=== PATIENT | female | born 1980 | race African-American/Black ===

== ENCOUNTER 2017-03-17 16:44 | Emergency (ER) | payer SELFPAY ==
--- NOTE | 2017-03-17 17:20 | ER Document Report ---
ED Medical Screen (RME) - General Stated Complaint: URINARY PROBLEMS Notes: 36-year-old female patient with lower abdomen pelvic pain and urinary frequency and urgency over the weekend, took Azo-Standard for 3 days, now the discomfort is a little worse and going into the back. I have greeted and performed a rapid initial assessment of this patient. A comprehensive ED assessment and evaluation of the patient, analysis of test results and completion of the medical decision making process will be conducted by additional ED providers. TRAVEL OUTSIDE OF THE [place] IN LAST 30 DAYS: No - Related Data Allergies/Adverse Reactions: metoclopramide HCl [From Reglan] Allergy (Severe, Verified 03/17/17 17:13) Past Medical History - Social History Family history: Hypertension - Past Medical History Cardiac Medical History: Reports: Hx Hypertension Endocrine Medical History: Denies: Hx Diabetes Mellitus Type 1, Hx Diabetes Mellitus Type 2 Renal/ Medical History: Denies: Hx Peritoneal Dialysis Past Surgical History: Reports: Hx Section - x2 - Immunizations Hx Diphtheria, Pertussis, Tetanus Vaccination: Yes
[2017-03-17 18:06] LABS: APPEARANCE,URINE CLEAR; BILIRUBIN,URINE NEGATIVE (NEGATIVE); GLUCOSE, URINE NEGATIVE (NEGATIVE); KETONES,URINE NEGATIVE (NEGATIVE); LEUKOCYTE ESTERASE,URINE NEGATIVE (NEGATIVE); NITRITE,URINE POSITIVE (NEGATIVE); PROTEIN,URINE NEGATIVE (NEGATIVE); URINE SPECIFIC GRAVITY 1.021
[2017-03-17] MEDS ORDERED: SULFAMETHOXAZOLE/TRIMETHOPRIM 800-160 MG TABLET PO ONE (19:17)
[2017-03-17] MEDS ORDERED: PHENAZOPYRIDINE HCL 200 MG TABLET PO ONE (19:17)
--- NOTE | 2017-03-17 19:19 | ER Document Report ---
HPI - HPI Patient complains to provider of: urinary symptoms Onset: Other - 3 days Onset/Duration: Persistent Quality of pain: Burning Pain Level: 4 Context: Patient complains of urinary frequency with dysuria for the past 3 days. Patient does complain of lower pelvic pain. Patient reports low-grade fever at 99 at home today. Patient does complain of some lower back pain. Patient denies any nausea or vomiting. Patient states she was treating her symptoms with AZO [id number] and finished a three-day course and still had symptoms which prompted her visit today. Associated Symptoms: Other - Urinary frequency, dysuria Exacerbated by: Denies Relieved by: Denies Similar symptoms previously: Yes Recently seen / treated by doctor: No - ROS ROS below otherwise negative: Yes Systems Reviewed and Negative: Yes All other systems reviewed and negative - CONSTITUTIONAL Constitutional: REPORTS: Fever - Low-grade 99 at home - GASTROINTESTINAL Gastrointestinal: REPORTS: Abdominal Pain. DENIES: Nausea, Patient vomiting - URINARY Urinary: REPORTS: Dysuria, Urgency, Frequency - REPRODUCTIVE Reproductive: DENIES: :, Abnormal bleeding / discharge - MUSCULOSKELETAL Musculoskeletal: REPORTS: Back Pain. DENIES: Extremity pain - DERM Skin Color: Normal Skin Problems: None Past Medical History - General Information source: Patient Last Menstrual Period: 03/08/2017 - Social History Smoking Status: Never Smoker Frequency of alcohol use: None Drug Abuse: None Occupation: daycare provider Family History: Reviewed & Not Pertinent Patient has suicidal ideation: No Patient has homicidal ideation: No - Past Medical History Cardiac Medical History: Reports: Hx Hypertension Endocrine Medical History: Denies: Hx Diabetes Mellitus Type 1, Hx Diabetes Mellitus Type 2 Renal/ Medical History: Denies: Hx Peritoneal Dialysis Past Surgical History: Reports: Hx Section - x2 - Immunizations Hx Diphtheria, Pertussis, Tetanus Vaccination: Yes Vertical Provider Document - CONSTITUTIONAL Agree With Documented VS: Yes Exam Limitations: No Limitations General Appearance: WD/WN, No Apparent Distress - INFECTION CONTROL TRAVEL OUTSIDE OF THE [place] IN LAST 30 DAYS: No - HEENT HEENT: Atraumatic, Normocephalic - NECK Neck: Normal Inspection, Supple - RESPIRATORY Respiratory: Breath Sounds Normal, No Respiratory Distress - CARDIOVASCULAR Cardiovascular: Regular Rate, Regular Rhythm, No Murmur - GI/ABDOMEN Gastrointestinal: Abdomen Soft, Abdomen Tender - Suprapubic tenderness, Abdominal Rebound, No Organomegaly - BACK Back: Normal Inspection. negative: CVA Tenderness-Right, CVA Tenderness-Left - MUSCULOSKELETAL/EXTREMETIES Musculoskeletal/Extremeties: REBECCA HERNANDEZ - NEURO Level of Consciousness: Awake, Alert, Appropriate Motor/Sensory: No Motor Deficit, No Sensory Deficit - DERM Integumentary: Warm, Dry, No Rash Course - Re-evaluation Re-evalutation: 03/17/17 19:23 Patient denies any concerns about possible sexually-transmitted infection this time. - Laboratory Laboratory results interpreted by me: 03/17/17 17:25 Urine Nitrite POSITIVE H Urine Urobilinogen 4.0 H Urine Ascorbic Acid 20 H 03/17/17 19:23 Labs- Entire Visit 03/17/17 17:25 Urine Color FERNANDA Urine Appearance CLEAR Urine pH 5.0 Ur Specific [place] 1.021 Urine Protein NEGATIVE Urine Glucose (UA) NEGATIVE Urine Ketones NEGATIVE Urine Blood NEGATIVE Urine Nitrite POSITIVE H Urine Bilirubin NEGATIVE Urine Urobilinogen 4.0 H Ur Leukocyte Esterase NEGATIVE Urine WBC (Auto) 6 Urine RBC (Auto) 2 Squamous Epi Cells Auto 1 Urine Mucus (Auto) RARE Urine Ascorbic Acid 20 H Urine HCG, Qual NEGATIVE Discharge - Discharge Clinical Impression: UTI (urinary tract infection) Qualifiers: Urinary tract infection type: acute cystitis Hematuria presence: without hematuria Qualified Code(s): N30.00 - Acute cystitis without hematuria Condition: Stable Disposition: HOME, SELF-CARE Instructions: Urinary Tract Infection ([facility]), Trimethoprim-Sulfa ([facility]), Urinary Anesthetic Agent ([facility]) Additional Instructions: Return immediately for any new or worsening symptoms Followup with your primary care provider, call tomorrow to make a followup appointment Prescriptions: Phenazopyridine HCl [Pyridium 200 mg Tablet] 200 mg PO TID #15 tablet Sulfamethoxazole/Trimethoprim [Bactrim Ds Tablet] 1 each PO BID #14 tablet Referrals: [facility] [Provider Group] - Follow up as needed
[2017-03-17 19:48] VITALS: BP 132/88
== END 2017-03-17 19:40 | disposition home or self-care (01) ==
LOC: ER 16:44
DX: N30.00 Acute cystitis without hematuria (principal); I10 Essential (primary) hypertension
CPT/HCPCS: 99284; 87086; 81025; 81001; J3490

== ENCOUNTER 2018-03-24 21:59 | Emergency (ER) | payer SELFPAY ==
[2018-03-25] MEDS ORDERED: LIDOCAINE 1% INJ-PF (10 MG/ML) 30 ML SDV INJ ONE (00:02)
--- NOTE | 2018-03-25 01:10 | ER Document Report ---
ED Wound - General Chief Complaint: Laceration Stated Complaint: FOREHEAD LACERATION Time Seen by Provider: 03/24/18 23:56 Notes: Patient presents with 3 cm laceration to her forehead and on the right side. Patient states that she slipped and hit her head on her bathtub. Patient denies any loss of consciousness and denies any dizziness. Patient states that she recently had her feet waxed and that her feet were slick which is what caused her slip and fall. Patient denies any other symptoms. TRAVEL OUTSIDE OF THE [place] IN LAST 30 DAYS: No - Related Data Allergies/Adverse Reactions: metoclopramide HCl [From [employer]] Allergy (Severe, Verified 03/17/17 17:13) Past Medical History - General Information source: Patient - Social History Smoking Status: Never Smoker Chew tobacco use (# tins/day): No Frequency of alcohol use: Occasional Drug Abuse: None Family History: Reviewed & Not Pertinent Patient has suicidal ideation: No Patient has homicidal ideation: No - Past Medical History Cardiac Medical History: Reports: Hx Hypertension Endocrine Medical History: Denies: Hx Diabetes Mellitus Type 1, Hx Diabetes Mellitus Type 2 Renal/ Medical History: Denies: Hx Peritoneal Dialysis Past Surgical History: Reports: Hx Section - x2 - Immunizations Hx Diphtheria, Pertussis, Tetanus Vaccination: Yes Review of Systems - Review of Systems Constitutional: No symptoms reported EENT: No symptoms reported Cardiovascular: No symptoms reported Respiratory: No symptoms reported Gastrointestinal: No symptoms reported Genitourinary: No symptoms reported Female Genitourinary: No symptoms reported Musculoskeletal: No symptoms reported Skin: See HPI Hematologic/Lymphatic: No symptoms reported Neurological/Psychological: No symptoms reported Physical Exam - Vital signs Vitals: Temp Pulse Resp BP Pulse Ox 98.0 F 82 20 137/95 H 100 03/24/18 22:16 03/24/18 22:16 03/24/18 22:16 03/24/18 22:16 03/24/18 22:16 - Notes Notes: PHYSICAL EXAMINATION: GENERAL: Well-appearing, well-nourished and in no acute distress. HEAD: Atraumatic, normocephalic. EYES: Pupils equal round and reactive to light, extraocular movements intact, conjunctiva are normal. ENT: Nares patent, oropharynx clear without exudates. Moist mucous membranes. NECK: Normal range of motion, supple without lymphadenopathy LUNGS: Breath sounds clear to auscultation bilaterally and equal. No wheezes rales or rhonchi. HEART: Regular rate and rhythm without murmurs ABDOMEN: Soft, nontender, nondistended abdomen. Female : deferred Musculoskeletal: Normal range of motion, no pitting or edema. No cyanosis. NEUROLOGICAL: Cranial nerves grossly intact. Normal speech, normal gait. Normal sensory, motor exams PSYCH: Normal mood, normal affect. SKIN: W3cm well approximated laceration to right forehead near hair line. Course - Re-evaluation Re-evalutation: Laceration repaired using sterile technique. Patient tolerated well. Patient reports that she had her last tetanus shot less than 5 years ago. Patient instructed to have sutures removed in 10 days to return sooner if she develops any signs of infection as outlined on her discharge papers. - Vital Signs Vital signs: Temp Pulse Resp BP Pulse Ox 99.0 F 81 16 129/91 H 100 03/25/18 01:37 03/25/18 01:37 03/25/18 01:37 03/25/18 01:37 03/25/18 01:37 Procedures - Laceration/Wound Repair Right Head Wound length (cm): 3 Wound's Depth, Shape: Into muscle Laceration pre-procedure: Sterile PPE donned Anesthetic type: 1% Lidocaine Volume Anesthetic (mLs): 4 Wound explored: Clean Irrigated w/ Saline (mLs): 30 Wound Repaired With: Sutures Suture Size/Type: 6:0 Number of Sutures: 7 Layer Closure?: No Post-procedure wound care: Sterile dressing applied Post-procedure NV exam normal: Yes Discharge - Discharge Clinical Impression: Laceration of forehead without complication Qualifiers: Encounter type: initial encounter Qualified Code(s): S01.81XA - Laceration without foreign body of other part of head, initial encounter Condition: Stable Disposition: HOME, SELF-CARE Instructions: Antibiotic Ointment Protection ([facility]), Laceration Care ([facility]), Soap Cleansing ([facility]) Additional Instructions: Laceration Care Your laceration has been sutured to keep the skin edges aligned during healing. The time of suture removal depends on the nature and location of your cut. Please follow the care instructions the doctor has outlined for you and return for further care, according to the schedule you've been given. TEN DAYS. Keep the wound and dressing clean. Unless you were told otherwise, you may shower daily, blotting the wound dry with a clean, unused towel. At other times , If the dressing gets wet or blood soaked, remove it and blot the wound dry, then reapply a new dressing. Unless you were instructed otherwise, dressings should be changed at least daily. If any signs of infection occur (swelling, redness, increasing tenderness, red streaks, tender lumps in the armpit or groin above the laceration, or fever) , see the doctor immediately. Please return to the emergency department or your primary care physician for suture removal in 10 days. Please return sooner if you develop any of the signs of infection as outlined above.
[2018-03-25 01:38] VITALS: BP 129/91
--- NOTE | 2018-03-25 08:41 | RADIOLOGY REPORT (SQ) ---
EXAM DESCRIPTION: SHOULDER RIGHT 2 OR MORE VIEWS COMPLETED DATE/TIME: 03/25/2018 12:19 am REASON FOR STUDY: pain s/p fall COMPARISON: None. NUMBER OF VIEWS: Three views. TECHNIQUE: Internal rotation, external rotation, and Y view images acquired of the right shoulder. LIMITATIONS: None. FINDINGS: MINERALIZATION: Normal. BONES: No acute fracture or dislocation. No worrisome bone lesions. JOINTS: No dislocation. VISUALIZED LUNGS AND RIBS: No pneumothorax. No rib fracture. SOFT TISSUES: No radiopaque foreign body. OTHER: No other significant finding. IMPRESSION: NO RADIOGRAPHIC EVIDENCE OF ACUTE INJURY. TECHNICAL DOCUMENTATION: JOB ID: [id number] [employer]- All Rights Reserved Reading location - IP/workstation name: [email or web address]
== END 2018-03-25 01:37 | disposition home or self-care (01) ==
LOC: ER 21:59
DX: S09.12XA Laceration of muscle and tendon of head, initial encounter (principal); S01.81XA Laceration without foreign body of other part of head, initial encounter; W01.198A Fall on same level from slipping, tripping and stumbling with subsequent striking against other object, initial encounter; I10 Essential (primary) hypertension; Z88.8 Allergy status to other drugs, medicaments and biological substances
CPT/HCPCS: 99283

== ENCOUNTER 2018-04-06 19:04 | Emergency (ER) | payer SELFPAY ==
[2018-04-06 19:15] VITALS: BP 140/86
[2018-04-06] MEDS ORDERED: LIDOCAINE 5% (700 MG) TRANSDERMAL ADH..PATCH TP ONE (19:35)
--- NOTE | 2018-04-06 19:36 | ER Document Report ---
HPI - HPI Patient complains to provider of: Suture removal, shoulder pain Onset: Other - 03/24/2018 Onset/Duration: Persistent Quality of pain: Achy Pain Level: 3 Context: She presents requesting suture removal to forehead laceration. Patient also complains of continued right upper arm pain. Patient states that she slipped and fell in the shower. Patient denies any loss of consciousness. Patient denies any problems with sutured laceration. Associated Symptoms: Other - Right upper arm pain. denies: Fever, Headache Exacerbated by: Movement Relieved by: Remaining still Similar symptoms previously: No Recently seen / treated by doctor: Yes - ROS ROS below otherwise negative: Yes Systems Reviewed and Negative: Yes All other systems reviewed and negative - CONSTITUTIONAL Constitutional: DENIES: Fever, Chills - NEURO Neurology: DENIES: Headache - CARDIOVASCULAR Cardiovascular: DENIES: Chest pain - RESPIRATORY Respiratory: DENIES: Trouble Breathing, Coughing - REPRODUCTIVE Reproductive: DENIES: : - MUSCULOSKELETAL Musculoskeletal: REPORTS: Extremity pain - DERM Skin Color: Normal Skin Problems: Laceration Past Medical History - General Information source: Patient - Social History Smoking Status: Never Smoker Chew tobacco use (# tins/day): No Frequency of alcohol use: None Drug Abuse: None Occupation: Childcare Family History: Reviewed & Not Pertinent Patient has suicidal ideation: No Patient has homicidal ideation: No - Past Medical History Cardiac Medical History: Reports: Hx Hypertension Endocrine Medical History: Denies: Hx Diabetes Mellitus Type 1, Hx Diabetes Mellitus Type 2 Renal/ Medical History: Denies: Hx Peritoneal Dialysis Past Surgical History: Reports: Hx Section - x2 - Immunizations Hx Diphtheria, Pertussis, Tetanus Vaccination: Yes Vertical Provider Document - CONSTITUTIONAL Agree With Documented VS: Yes Exam Limitations: No Limitations General Appearance: WD/WN, No Apparent Distress - INFECTION CONTROL TRAVEL OUTSIDE OF THE [place] IN LAST 30 DAYS: No - HEENT HEENT: Normocephalic Notes: Sutured laceration to right upper forehead area, wound edges approximated, no surrounding erythema - NECK Neck: Normal Inspection - RESPIRATORY Respiratory: Breath Sounds Normal, No Respiratory Distress - CARDIOVASCULAR Cardiovascular: Regular Rate, Regular Rhythm Pulses: Normal: Radial - BACK Back: Normal Inspection - MUSCULOSKELETAL/EXTREMETIES Musculoskeletal/Extremeties: MAEW, FROM, Tender - Right deltoid tenderness to right upper arm, no shoulder joint tenderness, no dislocation or deformity - NEURO Level of Consciousness: Awake, Alert, Appropriate Motor/Sensory: No Motor Deficit - DERM Integumentary: Warm, Dry, No Rash Course - Vital Signs Vital signs: Temp Pulse Resp BP Pulse Ox 99.1 F 85 16 140/86 H 100 04/06/18 19:13 04/06/18 19:13 04/06/18 19:13 04/06/18 19:13 04/06/18 19:13 - Diagnostic Test Radiology reviewed: Reports reviewed - Reviewed patient's previous radiology report Discharge - Discharge Clinical Impression: Visit for suture removal, Right arm pain Condition: Stable Disposition: HOME, SELF-CARE Instructions: Muscle Relaxers ([facility]), Muscle Strain ([facility]), Shoulder Injury ([facility]) , Suture Removal Additional Instructions: Return immediately for any new or worsening symptoms Followup with your primary care provider, call tomorrow to make a followup appointment Follow-up with orthopedics for further evaluation of right upper extremity pain Prescriptions: Cyclobenzaprine HCl [Flexeril 10 Mg Tablet] 10 mg PO TID #15 tablet Naproxen [Naprosyn 250 Nmg Tablet] 1 tab PO BID #14 tablet Forms: Return to Work Referrals: [facility] [Provider Group] - Follow up as needed
== END 2018-04-06 19:50 | disposition home or self-care (01) ==
LOC: ER 19:04
DX: S01.81XD Laceration without foreign body of other part of head, subsequent encounter (principal); M79.1 Myalgia; W18.2XXD Fall in (into) shower or empty bathtub, subsequent encounter

== ENCOUNTER 2018-08-17 11:30 | Emergency (ER) | payer SELFPAY ==
[2018-08-17 11:39] VITALS: BP 125/82
[2018-08-17] MEDS ORDERED: DIPH/PERTUSS(ACELL)/TETANUS VAC/PF 0.5 ML SYR (>=10YO) IM ONE (12:46)
[2018-08-17] MEDS ORDERED: LIDOCAINE 1% INJ-PF (10 MG/ML) 30 ML SDV INJ ONE (12:46)
--- NOTE | 2018-08-17 14:09 | ER Document Report ---
HPI - HPI Patient complains to provider of: cut toe Onset: Just prior to arrival Pain Level: 3 Context: 37 yo female dropped heavy picture onto left great toe and cut the toe. Associated Symptoms: None Exacerbated by: Movement Relieved by: Denies - ROS ROS below otherwise negative: Yes Systems Reviewed and Negative: Yes All other systems reviewed and negative - REPRODUCTIVE Reproductive: DENIES: : Past Medical History - General Information source: Patient - Social History Smoking Status: Never Smoker Chew tobacco use (# tins/day): No Frequency of alcohol use: Social Drug Abuse: None Family History: Reviewed & Not Pertinent Patient has suicidal ideation: No Patient has homicidal ideation: No - Past Medical History Cardiac Medical History: Reports: Hx Hypertension Past Surgical History: Reports: Hx Section - x2 - Immunizations Hx Diphtheria, Pertussis, Tetanus Vaccination: Yes Vertical Provider Document - CONSTITUTIONAL Agree With Documented VS: Yes Exam Limitations: No Limitations General Appearance: No Apparent Distress - INFECTION CONTROL TRAVEL OUTSIDE OF THE [place] IN LAST 30 DAYS: No - NEURO Motor/Sensory: No Sensory Deficit Notes: left great toe with some flexion that she can not correct, can not dorsiflex the toe. - DERM Integumentary: Laceration - 2 cm v shaped flap cut dorsum left gt toe at the MTP Course - Re-evaluation Re-evalutation: 08/17/18 15:[address] gan wants her to be on keflex, close, call ortho, splint in hyperextension 08/17/18 15:25 I have consulted with the ortho Dr. cotto who said to splint her in hyper extension Keflex and call first thing Monday for follow-up appointment - Vital Signs Vital signs: Temp Pulse Resp BP Pulse Ox 98.3 F 78 16 125/82 100 08/17/18 11:35 08/17/18 11:35 08/17/18 11:35 08/17/18 11:35 08/17/18 11:35 Procedures - Laceration/Wound Repair Left Toe Time completed: 15:20 Wound length (cm): 2 Wound's Depth, Shape: Flap Laceration pre-procedure: Sterile drapes applied, Other - surgiscrub Anesthetic type: 1% Lidocaine Volume Anesthetic (mLs): 5 Wound explored: Clean Irrigated w/ Saline (mLs): 1,000 Wound Repaired With: Sutures Suture Size/Type: 3:0, Prolene Number of Sutures: 4 Layer Closure?: No Post-procedure wound care: Sterile dressing applied, Splint applied - hyperflexion to align the toes Post-procedure NV exam normal: Yes Complications: No Discharge - Discharge Clinical Impression: right great toe extensor tendon rupture, Right great toe dorsal lacreation Condition: Good Disposition: HOME, SELF-CARE Instructions: Antibiotic Ointment Protection ([facility]), Laceration Care ([facility]), Prophylactic Antibiotic ([facility]), Tendon Laceration ([facility]), Tendon Laceration Referral ([facility]), Tetanus Immunization Given ([facility]) Additional Instructions: splint in hyperextension Antibiotics were times a day as directed Tylenol up to 4000 mg a day for pain Motrin up to 600 mg 3 times a day for pain and inflammation Keep the wound clean and dry Call the orthopedic office Monday for follow-up appointment next week Prescriptions: Ibuprofen [Motrin 600 mg Tablet] 600 mg PO Q8HP PRN #30 tablet PRN Reason: Cephalexin Monohydrate [Keflex 500 mg Capsule] 500 mg PO QID #28 capsule Referrals: DIDIER COTTO DO [ACTIVE STAFF] - 08/20/18 (Call Monday first thing for an appointment for follow-up)
--- NOTE | 2018-08-17 15:01 | RADIOLOGY REPORT (SQ) ---
EXAM DESCRIPTION: FOOT LEFT COMPLETE COMPLETED DATE/TIME: 08/17/2018 2:48 pm REASON FOR STUDY: injury to left 1st MTP COMPARISON: None. EXAM PARAMETERS: NUMBER OF VIEWS: Three views. TECHNIQUE: AP, lateral and oblique radiographic images acquired of the left foot. LIMITATIONS: None. FINDINGS: MINERALIZATION: Normal. BONES: No acute fracture or dislocation. No worrisome bone lesions. JOINTS: No effusion. SOFT TISSUES: No significant soft tissue swelling. No radiopaque foreign body. OTHER: No other significant finding. IMPRESSION: NO FRACTURE. TECHNICAL DOCUMENTATION: JOB ID: [id number] [id number] 2010 [employer]- All Rights Reserved Reading location - IP/workstation name: [email or web address]
[2018-08-17] MEDS ORDERED: CEPHALEXIN 500 MG CAPSULE PO ONE (15:19)
== END 2018-08-17 16:05 | disposition home or self-care (01) ==
LOC: ER 11:30
PROC: 0HQNXZZ Repair Left Foot Skin, External Approach (ICD-10-PCS; principal; 2018-08-17)
DX: S96.121A Laceration of muscle and tendon of long extensor muscle of toe at ankle and foot level, right foot, initial encounter (principal); S91.112A Laceration without foreign body of left great toe without damage to nail, initial encounter; W22.8XXA Striking against or struck by other objects, initial encounter; I10 Essential (primary) hypertension; Z23 Encounter for immunization
CPT/HCPCS: 99283; 90471; 73630; 90715; 12001; J3490

== ENCOUNTER 2018-08-29 11:20 | Emergency (ER) | payer SELFPAY ==
[2018-08-29 11:29] VITALS: BP 129/83
--- NOTE | 2018-08-29 11:56 | ER Document Report ---
ED Suture/Wound Recheck - General Chief Complaint: Suture Removal Stated Complaint: SUTURE REMOVAL Time Seen by Provider: 08/29/18 11:42 Mode of Arrival: Ambulatory Information source: Patient Notes: 37-year-old female presented ED for sutures removed from her left great toe. Patient states she had sutures placed on 17 August and has not changed the dressing since then. She still had her splint on with her original dressing. She denied any pain or discomfort at this time. She states she was also told that she had a ruptured tendon but has not been to orthopedics. She states she cannot afford to go to orthopedics and is not able to move her great toe. TRAVEL OUTSIDE OF THE [place] IN LAST 30 DAYS: No - HPI Previous ED treatment: Laceration repair Quality of pain: No pain Severity: None Pain Level: Denies Context: Injury Symptoms since procedure: No complaints Exacerbated by: Denies Relieved by: Denies - Related Data Allergies/Adverse Reactions: metoclopramide HCl [From Reglan] Allergy (Severe, Verified 08/29/18 11:22) Past Medical History - General Information source: Patient - Social History Smoking Status: Never Smoker Cigarette use (# per day): No Chew tobacco use (# tins/day): No Smoking Education Provided: No Frequency of alcohol use: Social Drug Abuse: None Family History: Reviewed & Not Pertinent Patient has suicidal ideation: No Patient has homicidal ideation: No - Past Medical History Cardiac Medical History: Reports: Hx Hypertension Pulmonary Medical History: Reports: None EENT Medical History: Reports: None Neurological Medical History: Reports: None Endocrine Medical History: Reports: None Renal/ Medical History: Reports: None Malignancy Medical History: Reports: None GI Medical History: Reports: None Musculoskeletal Medical History: Reports Hx Musculoskeletal Trauma Skin Medical History: Reports None Psychiatric Medical History: Reports: None Traumatic Medical History: Reports: None Infectious Medical History: Reports: None Past Surgical History: Reports: Hx Section - x2 - Immunizations Immunizations up to date: Yes Hx Diphtheria, Pertussis, Tetanus Vaccination: Yes Review of Systems - Review of Systems Constitutional: No symptoms reported EENT: No symptoms reported Cardiovascular: No symptoms reported Respiratory: No symptoms reported Gastrointestinal: No symptoms reported Genitourinary: No symptoms reported Female Genitourinary: No symptoms reported Musculoskeletal: No symptoms reported Skin: Other - Patient requesting sutures removed from left great toe Hematologic/Lymphatic: No symptoms reported Neurological/Psychological: No symptoms reported -: Yes All other systems reviewed and negative Physical Exam - Vital signs Vitals: Temp Pulse Resp BP Pulse Ox 99.2 F 95 16 129/83 H 100 08/29/18 11:24 08/29/18 11:24 08/29/18 11:24 08/29/18 11:24 08/29/18 11:24 Interpretation: Normal - General General appearance: Appears well, Alert - HEENT Head: Normocephalic, Atraumatic Eyes: Normal Pupils: PERRL - Respiratory Respiratory status: No respiratory distress Chest status: Nontender Breath sounds: Normal Chest palpation: Normal - Cardiovascular Rhythm: Regular Heart sounds: Normal auscultation Murmur: No - Abdominal Inspection: Normal Distension: No distension Bowel sounds: Normal Tenderness: Nontender Organomegaly: No organomegaly - Back Back: Normal, Nontender - Extremities General upper extremity: Normal inspection, Nontender, Normal color, Normal ROM , Normal temperature General lower extremity: Normal inspection, Nontender, Normal color, Normal ROM , Normal temperature, Normal weight bearing. No: Davis's sign - Neurological Neuro grossly intact: Yes Cognition: Normal Orientation: AAOx4 Db Coma Scale Eye Opening: Spontaneous [place] Coma Scale Verbal: Oriented Db Coma Scale Motor: Obeys Commands Db Coma Scale Total: 15 Speech: Normal Motor strength normal: LUE, RUE, LLE, RLE Sensory: Normal - Psychological Associated symptoms: Normal affect, Normal mood - Skin Skin Temperature: Warm Skin Moisture: Dry Skin Color: Normal Location of irregularity: Extremities - Left great toe incision well approximated no redness no drainage no signs or symptoms of infection. Patient unable to move the left great toe. Course - Re-evaluation Re-evalutation: 08/29/18 21:10 Sutures were removed and a dressing and splint applied to the left great toe. Patient verbalized understanding of the need to follow-up with orthopedics. - Vital Signs Vital signs: Temp Pulse Resp BP Pulse Ox 99.2 F 95 16 129/83 H 100 08/29/18 11:24 08/29/18 11:24 08/29/18 11:24 08/29/18 11:24 08/29/18 11:24 Discharge - Discharge Clinical Impression: Visit for suture removal Condition: Stable Disposition: HOME, SELF-CARE Instructions: Use of [id number] Ibuprofen ([facility]), Suture Removal Additional Instructions: SOAP CLEANSING: Gently wash the wound daily using a mild soap (like Ivory, Phisoderm, Neutrogena). Use warm water, rubbing gently until all debris, ooze, and crusting have been washed from the wound. Allow to dry briefly (about 10 minutes) after cleaning. Repeat this cleansing at least three times a day for the first two days and then once or twice a day. ANTIBIOTIC OINTMENT PROTECTION: Your wounds are such that dressing them is not practical or optional. After cleansing, you should apply a thin coating of antibiotic ointment ( Bacitracin, not Neosporin) to the wounds at least three times daily. This lessens infection risk, and may decrease the amount of scarring. Use a q-tip or dull butter knife, not your finger, to apply this ointment. Any debris or ooze which builds up in the ointment should be gently rubbed off with a sterile gauze pad. Harder crusting may need to be gently scrubbed off with a clean wash cloth with soap and warm water, perhaps applying a warm, wet wash cloth to the wound for ten minutes first. Development of redness, severe itching, or blistering may mean allergy to the ointment. See the doctor. Your left great toe needs to be cleaned with soap and water 2-3 times a day and bacitracin applied to the area until this completely heals. You have a splint reapplied to your toe as you have a ruptured tendon to this toe. It is very important that you follow-up with orthopedics as you were previously instructed. Please call first thing in the morning and schedule an appointment. You will lose the use of this toe if you do not repair of the tendon to the toe. FOLLOW-UP CARE: If you have been referred to a physician for follow-up care, call the physician s office for an appointment as you were instructed or within the next two days. If you experience worsening or a significant change in your symptoms, notify the physician immediately or return to the Emergency Department at any time for re-evaluation. Forms: Elevated Blood Pressure Referrals: HELEN COTTO MD [ASSOCIATE] - Follow up as needed
== END 2018-08-29 12:02 | disposition home or self-care (01) ==
LOC: ER 11:20
DX: S91.112D Laceration without foreign body of left great toe without damage to nail, subsequent encounter (principal); X58.XXXD Exposure to other specified factors, subsequent encounter; I10 Essential (primary) hypertension; Z88.8 Allergy status to other drugs, medicaments and biological substances